=== PATIENT | male | born 1955 | race Caucasian/White ===

== ENCOUNTER → 2016-07-19 | Outpatient (CLI) | payer BC, OTHER ==
--- NOTE | 2016-07-19 14:30 | CR ---
EXAMINATION: Two-view chest (PA and Lateral views). HISTORY: [place]. FINDINGS: The trachea is midline. The cardiomediastinal silhouette is within normal limits. No pulmonary infil trates, effusions or pneumothorax. Osseous structures appear unremarkable. IMPRESSION: No acute cardiopulmonary process.
== END ==
LOC: MW.CHRC 13:28
PROVIDERS: ATTEND Family Medicine
DX: I25.2 Old myocardial infarction (principal)
CPT/HCPCS: 71020; 71020-26; 93005